=== PATIENT | male | born 1975 | race African-American/Black ===

== ENCOUNTER 2019-05-07 03:50 | Emergency (ER) | payer MEDICAID, OTHER ==
[~2019-05-07] VITALS: Ht 185.4 cm; Wt 122.6 kg
[2019-05-07] MEDS ORDERED: MORPHINE SULFATE 4 MG/ML, 1ML ONE (04:22)
[2019-05-07] MEDS ORDERED: ONDANSETRON 2MG/ML, 2ML ONE (04:22)
[2019-05-07] MEDS ORDERED: ONDANSETRON 2MG/ML, 2ML IVPush ONE (04:30)
[2019-05-07] MEDS ORDERED: MORPHINE SULFATE 4 MG/ML, 1ML IVPush PRN (04:30)
[2019-05-07 04:41] LABS: BASOPHILS # (AUTO) 0.01 x10^3/uL (0-0.1); BASOPHILS % (AUTO) 0 % (0-1); EOSINOPHILS % (AUTO) 2 % (1-7); LYMPHOCYTES # (AUTO) 2.07 x10^3/uL (1-3.4); LYMPHOCYTES % (AUTO) 30 % (22-44); MD NO; MEAN CORPUSCULAR HEMOGLOBIN 29.9 pg (27.5-34.5); MEAN CORPUSCULAR HGB CONC 32.4 g/dL (33.2-36.2); MEAN CORPUSCULAR VOLUME 92.1 fL (81-97); MEAN PLATELET VOLUME 8.3 fL (7.4-10.4); MONOCYTES # (AUTO) 0.53 x10^3/uL (0.2-0.8); MONOCYTES % (AUTO) 8 % (2-9); NEUTROPHILS % (AUTO) 60 % (42-75); PLATELET COUNT 235 x10^3/uL (130-400); RED BLOOD COUNT 5.04 x10^6/uL (4.38-5.82); RED CELL DISTRIBUTION WIDTH 15.2 % (9.4-14.8)
[2019-05-07 04:43] LABS: ALBUMIN 3.7 g/dL (3.4-5.0); ANION GAP 5 mmol/L (5-15); CHLORIDE 107 mmol/L (98-107)
[2019-05-07 04:47] LABS: ALANINE AMINOTRANSFERASE 38 U/L (12-78); ALKALINE PHOSPHATASE 62 U/L (45-117); BILIRUBIN,TOTAL 0.4 mg/dL (0.2-1.0); TOTAL PROTEIN 8.7 g/dL (6.4-8.2)
--- NOTE | 2019-05-07 04:53 | NUR ---
PT FROM TRIAGE WITH C/O RHEA UMBILICAL PAIN, PT STATES HX OF GASTRITIS BUT IS NORMALLY HIGHER, PIV PLACED LABS AND URINE DENT PLACED ON MONITORS, MEDICATED FOR PAIN PER MD ORDER
[2019-05-07 05:03] LABS: MICROSCOPIC INDICATED
[2019-05-07] MEDS ORDERED: OMNIPAQUE 350 MG/ML, 150 ML BOTTLE ONE (05:11)
[2019-05-07 05:12] LABS: CULTURE INDICATED? NO
[2019-05-07 05:54] VITALS: BP 123/70
--- NOTE | 2019-05-07 05:55 | NUR ---
PT STATES PAIN FEELS BETTER AT THIS TIME
== END 2019-05-07 06:41 | disposition home or self-care (01) ==
LOC: ED 06:09
DX: R10.33 Periumbilical pain (principal)
CPT/HCPCS: 36415; 74177; 80053; 81001; 83690; 85025; 96374; 96375; 99284; J2270; J2405; Q9967